=== PATIENT | female | born 1980 | race Caucasian/White ===

== ENCOUNTER 2018-08-07 19:38 | Emergency (ER) | payer OTHER ==
[~2018-08-07] VITALS: Wt 60.2 kg
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
[2018-08-07] MEDS ORDERED: CYCL10TA7 PO (22:07)
[2018-08-07] MEDS ORDERED: ACET500C5 PO (22:07)
[2018-08-07] MEDS ORDERED: HYDR-4011 PO (22:07)
[2018-08-07 22:29] VITALS: BP 123/73; PULSE 86; RESP 18
== END 2018-08-07 22:33 | disposition home or self-care (01) ==
LOC: FTE 19:38
DX: S16.1XXA Strain of muscle, fascia and tendon at neck level, initial encounter (principal); S39.012A Strain of muscle, fascia and tendon of lower back, initial encounter; S06.0X0A Concussion without loss of consciousness, initial encounter; S93.401A Sprain of unspecified ligament of right ankle, initial encounter; V87.7XXA Person injured in collision between other specified motor vehicles (traffic), initial encounter
CPT/HCPCS: 70450; 72125; 72128; 81003; 81025